=== PATIENT | male | born 1990 | race Caucasian/White ===

== ENCOUNTER 2022-08-16 14:17 | Emergency (ER) | payer OTHER ==
[~2022-08-16] VITALS: Ht 190.5 cm; Wt 113.4 kg
[2022-08-16 14:42] VITALS: BP 147/91
--- NOTE | 2022-08-16 15:30 | NUR ---
TO ER BED 11
--- NOTE | 2022-08-16 15:51 | NUR ---
Patient came to ER today s/p laceration to tip of left hand 1st digit from table saw. Last knwon tetanus shot 3 years ago.
[2022-08-16 15:56] VITALS: BP 147/91
[2022-08-16] MEDS ORDERED: IBUPROFEN 600 MG TAB PO ONE (17:00)
[2022-08-16] MEDS ORDERED: LIDOCAINE MPF 1% 10 MG/ML VIAL INJ ONE (17:00)
[2022-08-16] MEDS ORDERED: BACITRACIN OINT 500 UNITS/GM PKT TP ONE (17:00)
--- NOTE | 2022-08-16 18:20 | NUR ---
NON ADHERENT X 1 APPLIED TO L THUMB. + CMS AFTER APPLICATION.
[2022-08-16] MEDS ORDERED: IBUP-2213 PO (18:26)
[2022-08-16] MEDS ORDERED: BACI1PAC6 TP (18:26)
--- NOTE | 2022-08-16 18:33 | NUR ---
Patient discharged with v/s stable. Written and verbal after care instructions ABOUT LACERATION CARE given and explained. Patient alert, oriented and verbalized understanding of instructions. Ambulatory with steady gait. All questions addressed prior to discharge. ID band removed. Patient advised to follow up with PMD. Rx of IBUPROFEN AND BACITRACIN given. Patient educated on indication of medication including possible reaction and side effects. Opportunity to ask questions provided and answered.
== END 2022-08-16 18:33 | disposition home or self-care (01) ==
LOC: MED 14:17
DX: S61.012A Laceration without foreign body of left thumb without damage to nail, initial encounter (principal); W26.8XXA Contact with other sharp object(s), not elsewhere classified, initial encounter; Y93.89 Activity, other specified; Y92.89 Other specified places as the place of occurrence of the external cause; Y99.8 Other external cause status
CPT/HCPCS: 12001; 73140; 99283; J2001